=== PATIENT | female | born 1960 | race Caucasian/White ===

== ENCOUNTER 2016-10-01 14:13 | Emergency (ER) | payer OTHER ==
--- NOTE | 2016-10-03 13:15 | ER ---
ADMIT: 10/01/2016 RM/LOC: ER [facility] MR#: [id number] [address] [id number] KANDY CASTILLO [address] [place] [id number] Emergency Room Report SEX: F AGE: 56 : 1960 CORRECTED: 10/02/2016 0615 NJV DATE: 10/01/2016 BRIEF ADDENDUM: Please see my T-sheet for complete review of systems, past medical history, and physical exam. CHIEF COMPLAINT: Pain with urination. HISTORY OF PRESENT ILLNESS: This is a 56-year-old, white female, who presents to the ED after she phoned her primary care provider and encouraged her to be seen here with concerns of dehydration. The patient states this began about 14 days ago. Pain primarily at the end of urination. Does have some vague suprapubic pain, had some left-sided back pain at the beginning; however, this is somewhat resolved at this point. She was in her primary care's office yesterday. They did a UA on her. I told her there are no signs of acute infection. I encouraged her to continue to drink. She states she has been drinking liberally water and Pedialyte, avoiding pop or anything like that. She is urinating quite frequently. Denies any vaginal complaints. Does admit to some fevers and chills. No nausea, vomiting, shortness of breath, or headache. COURSE IN THE EMERGENCY ROOM: The patient was seen and examined. She is afebrile and nontoxic. She is in no acute distress. She does have some suprapubic tenderness. No guarding or rebound. No McBurney's point tenderness. No CVA tenderness on exam. Did get a UA on her, shows 3+ leukocyte esterase, 170 wbc's, and 6 rbc's. IMPRESSION: Acute cystitis. DISPOSITION: The patient will be started on a course of Bactrim DS 1 tab p.o. b.i.d. for 5 days. I will also give her a dose of fluconazole 150 mg p.o. once prophylaxis against vaginal Kelley infection. I encouraged her to continue to increase her fluids as tolerated. Continue all her home medications. Follow up with Dr. Mensah as needed. Questions sought and answered to best of my ability and to the patient's satisfaction. Discharged in stable condition. MIRLANDE Ricks / Jaquan Caceres MD / modl JOB #: [id number] CC: Jaquan Caceres MD, Attending Physician Ayaz Mensah MD, Family Physician CORRECTED: 10/02/2016 0615 NJV
== END 2016-10-01 15:24 | disposition home or self-care (01) ==
LOC: ER 14:13
DX: N30.00 Acute cystitis without hematuria (principal); E03.9 Hypothyroidism, unspecified; Z90.49 Acquired absence of other specified parts of digestive tract; Z79.899 Other long term (current) drug therapy